=== PATIENT | male | born 2000 | race Asian ===

== ENCOUNTER 2024-09-30 16:53 | Emergency (ER) | payer MEDICAID ==
[~2024-09-30] VITALS: Ht 165.1 cm; Wt 54.0 kg
[2024-09-30 17:08] VITALS: O2SAT 99
[2024-09-30] MEDS ORDERED: SODIUM CHLORIDE 0.9% 1,000 ML IV ONE (18:45)
[2024-09-30] MEDS ORDERED: PANTOPRAZOLE 40MG DR TABLET PO ONE (18:45)
[2024-09-30 18:57] LABS: CLARITY URINE CLEAR (CLEAR); COLOR URINE YELLOW (YELLOW); GLUCOSE URINE NEGATIVE (NEGATIVE); KETONES URINE NEGATIVE (NEGATIVE); LEUKOCYTE ESTERASE URINE NEGATIVE (NEGATIVE); NITRITE URINE NEGATIVE (NEGATIVE); OCCULT BLOOD URINE NEGATIVE (NEGATIVE); PH URINE 8.0 (4.5-8.0); PROTEIN URINE NEGATIVE (NEGATIVE); SPECIFIC GRAVITY URINE 1.003 (1.005-1.030); UROBILINOGEN URINE 0.2 E.U./dL (0.2-1.0)
[2024-09-30 19:21] LABS: BASOPHILS % 1.3 % (0.0-2.0); EOSINOPHILS % 0.6 % (0.0-5.0); HEMATOCRIT. 42.0 % (42.0-52.0); HEMOGLOBIN. 13.7 g/dL (14.0-18.0); LYMPHOCYTES % 7.4 % (20.0-50.0); MEAN PLATELET VOLUME 9.6 fl (7.4-10.4); MONOCYTES % 9.8 % (2.0-8.0); NEUTROPHILS % 80.9 % (40.0-76.0); PLATELET 176 x1000/uL (130-400); RED BLOOD CELL COUNT 5.37 mill/uL (4.7-6.1); RED CELL DISTRIBUTION WIDTH 14.8 % (11.6-14.6)
[2024-09-30 19:28] LABS: *AMPHETAMINES SCREEN URINE NEGATIVE (NEGATIVE)
[2024-09-30 19:30] LABS: *BARBITURATES SCREEN URINE NEGATIVE (NEGATIVE); *BENZODIAZEPINES SCREEN URINE NEGATIVE (NEGATIVE); *COCAINE SCREEN URINE NEGATIVE (NEGATIVE); CANNABINOID URINE SCREEN PRESUMPTIVE POSITIVE (NEGATIVE); METHADONE URINE SCREEN NEGATIVE (NEGATIVE); OPIATES URINE SCREEN NEGATIVE (NEGATIVE); PHENCYCLIDINE URINE SCREEN NEGATIVE (NEGATIVE)
[2024-09-30 19:31] LABS: INR 1.1
[2024-09-30 19:31] LABS: ECSTASY MDMA SCREEN URINE NEGATIVE (NEGATIVE)
[2024-09-30 19:33] LABS: CREATININE 1.0 mg/dL (0.6-1.3)
[2024-09-30 19:34] LABS: UREA NITROGEN BLOOD 8 mg/dL (9-23)
[2024-09-30 19:35] LABS: ASPARTATE AMINOTRANSFERASE 26 IU/L (<34)
[2024-09-30 19:36] LABS: BILIRUBIN DIRECT 0.3 mg/dL (<=3.0); BILIRUBIN TOTAL 1.2 mg/dL (0.1-1.0); PHOSPHORUS 3.3 mg/dL (2.5-4.9); PROTEIN TOTAL 7.5 g/dL (6.0-8.3)
[2024-09-30] MEDS ORDERED: TOPUD PO (19:47)
[2024-09-30] MEDS ORDERED: IBUP-2028 MT (19:47)
[2024-09-30] MEDS: FAMOTIDINE 20MG TABLET PO ONE (20:15)
[2024-09-30] MEDS: DEXAMETHASONE 4MG TABLET PO ONE (20:15)
[2024-09-30] MEDS: ONDANSETRON 4MG ODT PO ONE (20:16)
[2024-09-30] MEDS: PENICILLIN G BENZATHINE 1,200,000 UNITS/2ML SYR IM ONE (20:17)
[2024-09-30 20:20] VITALS: BP 126/69; PULSE 78; RESP 18; TEMP 37.4; O2SAT 99
== END 2024-09-30 20:29 | disposition home or self-care (01) ==
LOC: ER 16:53
DX: B34.9 Viral infection, unspecified (principal); J02.9 Acute pharyngitis, unspecified; R07.9 Chest pain, unspecified; Z98.890 Other specified postprocedural states; Z79.899 Other long term (current) drug therapy
CPT/HCPCS: 99284; 80076; 80305; 80048; 82550; 87430; 83690; 83735; 84100; 85025; 85610; 86850; 86900; 86901; 87070; 36415; 93005; 96372; 81003; J0561; J8540; Q0162; J7030